=== PATIENT | female | born 1970 | race Caucasian/White ===

== ENCOUNTER 2017-04-25 05:23 | Inpatient (IN) | payer OTHER ==
[2017-04-25] MEDS ORDERED: Scopolamine 1.5 MG Transdermal Patch TRDERM SCH (05:30)
[2017-04-25] MEDS ORDERED: Acetaminophen 500 MG Tab PO ONE (05:30)
[2017-04-25] MEDS ORDERED: Gabapentin 300 MG Cap PO ONE (05:30)
[2017-04-25] MEDS ORDERED: Lactated Ringers 1,000 ML IV SCH (06:00)
[2017-04-25] MEDS ORDERED: Povidone-Iodine 10% Soln 118.25 ML Bottle ONE (06:50)
[2017-04-25] MEDS ORDERED: Bupivacaine 0.5%/EPINEPHrine 1:200,000 50 ML MDV ONE (06:50)
[2017-04-25] MEDS ORDERED: Thrombin (Bovine) 5,000 Unit Kit ONE (06:50)
[2017-04-25] MEDS ORDERED: Ondansetron 4 MG/2 ML SDV ONE (07:15)
[2017-04-25] MEDS ORDERED: fentaNYL 250 MCG/5 ML SDV ONE ×2 (07:15→07:56)
[2017-04-25] MEDS ORDERED: Rocuronium 50 MG/5 ML Vial ONE (07:15)
[2017-04-25] MEDS ORDERED: Dexamethasone 4 MG/ML SDV ONE (07:15)
[2017-04-25] MEDS ORDERED: Neostigmine Methylsulfate 1 MG/ML 5 ML Syringe ONE (07:15)
[2017-04-25] MEDS ORDERED: Propofol 200 MG/20 ML SDV ONE ×3 (07:15→09:10)
[2017-04-25] MEDS ORDERED: Glycopyrrolate 0.2 MG/ML 5 ML MDV ONE (07:15)
[2017-04-25] MEDS ORDERED: Succinylcholine 200 MG/10 ML MDV ONE (07:15)
[2017-04-25] MEDS: Tranexamic Acid 770 MG in Sodium Chloride 0.9% 50 ML IV SCH ×2 (07:16→10:03)
[2017-04-25] MEDS ORDERED: Lidocaine 1% 2 ML ONE (07:29)
[2017-04-25] MEDS ORDERED: ceFAZolin 2 GM in Premix Bag 1 BAG IV ONE (07:30)
[2017-04-25] MEDS ORDERED: Ketamine 500 MG/5 ML MDV IV ONE (07:35)
[2017-04-25] MEDS ORDERED: Aluminum Hydroxide/Magnesium Hydroxide/Simethicone Susp 30 ML Cup PO PRN (09:55)
[2017-04-25] MEDS ORDERED: Acetaminophen 1,000 MG in Premix Bag 1 BAG IV ONE ×2 (09:55→12:00)
[2017-04-25] MEDS ORDERED: Ondansetron 4 MG/2 ML SDV IVPUSH PRN (09:55)
[2017-04-25] MEDS ORDERED: Naloxone 0.4 MG/ML SDV IVPUSH PRN (09:55)
[2017-04-25] MEDS ORDERED: HYDROmorphone 1 MG/ML Syringe IVPUSH PRN (09:55)
[2017-04-25] MEDS ORDERED: Zolpidem 5 MG Tab PO PRN (09:55)
[2017-04-25] MEDS ORDERED: ceFAZolin 2 GM in Sodium Chloride 0.9% 50 ML IV SCH (10:00)
[2017-04-25] MEDS ORDERED: MECLIZINE 12.5 MG PO PRN (10:01)
[2017-04-25] MEDS ORDERED: LORazepam 0.5 MG Tab PO PRN (10:01)
[2017-04-25] MEDS ORDERED: Meclizine 25 MG Tab PO PRN (11:00)
[2017-04-25] MEDS: oxyCODONE 5 MG Tab PO PRN ×3 (11:12→22:01)
[2017-04-25] MEDS: ceFAZolin 2 GM in Premix Bag 1 BAG IV SCH ×2 (13:21→22:02)
--- NOTE | 2017-04-25 14:23 | OR ---
DATE OF PROCEDURE: 04/25/2017 PREOPERATIVE DIAGNOSIS: Cervical stenosis C5-6, C6-7. POSTOPERATIVE DIAGNOSIS: Cervical stenosis C5-6, C6-7. PROCEDURES: 1. Anterior cervical diskectomy and fusion, C5-6. 2. Anterior cervical diskectomy and fusion, C6-7. 3. Interbody device placement, C5-6. 4. Interbody device placement, C6-7. 5. Anterior segmental instrumentation, C5-6 and C6-7. 6. Autograft used from drilling vertebral body, used an interspace as well as Globus Signify allograft. 7. Partial corpectomy at C5. MEDICAL HEALTH RESEARCHER: ZELDA Julio. Physician political science research assistant, Radhika Joseph NP, played an essential role in assisting in this case, helping to position the patient, retract structures as needed, as well as suturing and cutting sutures as indicated. Her presence improved patient's safety and decreased operative time. ANESTHESIA: General endotracheal intubation. FLUID: Lactated Ringer solution. ESTIMATED BLOOD LOSS: 50 mL. COMPLICATIONS: None. SPECIMEN: None. DISCHARGE DISPOSITION: Stable to PACU. INSTRUMENTATION: [employer] ACP. The spacer at C5-6 is a 10 x 16, 7-degree 9-mm with a 10 mm x 4 mm plate. At C6-7, the spacer is a 10 x 16, 7-degree, 7-mm height with a 16 x 7 mm plate. All 4 screws are 3.6 mm x 16 mm diameter variable angle self-drilling screws. INDICATIONS FOR THE PROCEDURE: The patient was seen preoperatively in the clinic. She had failed nonoperative treatment, preoperative imaging, confirmed the above-mentioned diagnosis. Risks and benefits of the procedure were explained to the patient. Informed consent was obtained. DETAILS OF PROCEDURE: The patient was seen preoperatively in the preop holding area by myself and the anesthesia staff where the preoperative site was marked. She was brought to the operative suite by the anesthesia staff where general anesthesia was administered. She was on a flat Artis table. She had neuromonitoring leads placed, which were normal at baseline and normal throughout the case. We had tucked the arms, placed gel pads under the shoulders and then under the neck and put the neck in neutral position. All extremities were found to be well padded. I then took preoperative radiographs to confirm that we had good placement. I also placed tape on the shoulders and taken the tape down laterally down the arms down to the bottom of the bed. After confirming that we had adequate visualization, we then took out the fluoroscopy unit and then prepped and draped the patient in a sterile manner. A time-out was called identifying the correct patient, correct procedure, correct site, and antibiotics had begun within appropriate period of time. We then used a sterilely draped fluoroscopy unit and found the C6-7 interspace. I then made an oblique incision medial to the right-sided sternocleidomastoid and carried down through the platysma with Bovie electrocautery and bipolar electrocautery down to the level of sternocleidomastoid. Then used a Weitlaner for retraction. I then went through the medial border of the sternocleidomastoid through its fascia and then using blunt dissection went down to the prevertebral space. I then confirmed that we were at the C6-7 interspace and then used a 35 mm radiolucent shadow line blades for retraction. I then used a knife to go through the anterior annulus and then used a rongeur and drill to remove some anterior osteophytes, which were saved for placement in the interbody device. I then performed a diskectomy using curettes, Kerrison and pituitaries down the level of the posterior longitudinal ligament and then went through the posterior longitudinal ligament on the right and the left side in a manner so that I could take the curette out the foramen bilaterally and then placed a nerve hook. I did have some epidural bleeding back there and then I placed thrombin-soaked Gelfoam and cottonoids which controlled the bleeding. We then sequentially placed trials from 5 up to a 7-mm height, 7 mm provided adequate distraction. We then inserted our final spacer and then awl'd and then placed screws under fluoroscopic visualization, making sure they were not too long. After this had been accomplished, we went up to the C5-C6 interspace. This was much more difficult as the disk space had degenerated significantly. At this interspace, I did have to perform a partial corpectomy of C5 because the interspace was so deteriorated and with difficulty with traction, I was able to then put in my intervertebral spreaders and then get to the back. I did use fluoroscopy to determine how far back I was at one point in the case. I was then able to identify the posterior longitudinal ligament and then placed a curette out bilateral foramina and followed by a nerve hook. I did use 2 Kerrison to remove some osteophytes from the inferior aspect of the vertebral body at C5 and superior aspect of the vertebral body at C6. I then trialed from an 8 to a 9. The 9 mm seemed to be of right adequate distraction without over distraction and I confirmed this on fluoroscopy. I then inserted the final implant and then awl'd and placed my screws and confirmed good position. We then took our final AP and lateral films. After this had been done, we then copiously irrigated with 2 L of Betadine infused irrigation and then placed FloSeal at the base of the wound and then let that sit and then tamped any excess out with a Ray-Poonam. I then placed a drain out the lateral aspect of the wound and then closed the platysma. I had Radhika Joseph close the platysma with 2-0 Vicryl sutures followed by 3-0 Monocryl, followed by Steri-Strips and a sterile dressing. The patient was then allowed to awaken from general anesthesia and taken to the PACU in stable condition. Kanu Sharp DO /[id number]
[2017-04-25] MEDS ORDERED: Sennosides 8.6 MG Tab PO SCH (21:00)
[2017-04-25] MEDS ORDERED: Magnesium Hydroxide 400 MG/5 ML Susp 30 ML Cup PO SCH (21:00)
[2017-04-25] MEDS: Sennosides 8.6 MG Tab PO SCH (21:58)
[2017-04-25] MEDS: Magnesium Hydroxide 400 MG/5 ML Susp 30 ML Cup PO SCH (21:59)
[2017-04-26] MEDS ORDERED: Benzocaine/Cetylpyridinium/Menthol Lozenge MUCMEM PRN (00:03)
[2017-04-26] MEDS: ceFAZolin 2 GM in Premix Bag 1 BAG IV SCH (05:11)
[2017-04-26] MEDS: oxyCODONE 5 MG Tab PO PRN (07:12)
[2017-04-26] MEDS ORDERED: MAGNESIUM MALATE MC SCH ×2 (09:00)
[2017-04-26] MEDS ORDERED: OMEGA PO SCH (09:00)
[2017-04-26] MEDS ORDERED: Cholecalciferol (Vitamin D3) 1,000 Unit Tab PO SCH (09:00)
[2017-04-26] MEDS ORDERED: Non-Formulary Medication 1 Each (Cholecalciferol (Vitamin D3) [Vitamin D] 5,000 UNIT) PO SCH (09:00)
[2017-04-26] MEDS ORDERED: TUMERIC PO SCH (09:00)
[2017-04-26] MEDS ORDERED: Calcium Carbonate/Vitamin D3 1500 MG-400 Units Tab PO SCH (09:00)
[2017-04-26] MEDS ORDERED: Vitamin B Complex Tab PO SCH (09:00)
[2017-04-26] MEDS ORDERED: VITAMIN PO SCH (09:00)
[2017-04-26] MEDS ORDERED: Fish Oil/Omega-3 Fatty Acids 1 Gm Cap PO SCH (09:00)
[2017-04-26] MEDS ORDERED: FATTY ACIDS PO SCH (09:00)
[2017-04-26] MEDS ORDERED: CALCIUM CARBONATE PO SCH (09:00)
[2017-04-26] MEDS ORDERED: [UNRECOGNIZED DRUG - OTHER] PO SCH (09:00)
[2017-04-26] MEDS ORDERED: VITAMIN D3 PO SCH (09:00)
[2017-04-26] MEDS: Sennosides 8.6 MG Tab PO SCH (09:25)
[2017-04-26] MEDS: Magnesium Hydroxide 400 MG/5 ML Susp 30 ML Cup PO SCH (09:26)
[2017-04-26] MEDS ORDERED: Acetaminophen/oxyCODONE 325-5 MG Tab PO PRN (09:56)
--- NOTE | 2017-05-01 15:31 | PCM.DCSUM1 ---
Discharge Summary - Hospital Course Free Text/Narrative:: Patient is status postop day 1 of a cervical fusion C5-6 and C6-7. She is doing very well. Patient states she has minimal pain at this time. Patient is sitting up in the chair eating breakfast. - Discharge Data Discharge Date: 04/27/17 Discharge Disposition: Home, Self-Care 01 Condition: Good - Patient Summary/Data Consults: Consultations 04/25/17 09:56 OT Evaluation and Treatment [CONS] Routine Please Evaluate and Treat. OT Reason for Consult: Strengthening This query below is only for informational purposes and is not editable. PT Evaluation and Treatment [CONS] Routine Please Evaluate and Treat. PT Reason for Consult: Strengthening This query below is only for informational purposes and is not editable. Respiratory Care Assess and Treatment [CONS] Routine Comment: Physician Instructions: Post-Op Pneumonia Prevention - Patient Instructions Diet: Usual Diet as Tolerated Activity: Apply Ice, As Tolerated Driving: Do Not Drive Showering/Bathing: May Shower, No Tub Bathing/Swimming Wound/Incision Care: Keep Operative Site/Wound Site Clean and Dry, Change Dressing Daily Notify Provider of: Fever, Increased Pain, Swelling and Redness, Drainage, Nausea and/or Vomiting - Discharge Plan Prescriptions/Med Rec: Acetaminophen/oxyCODONE [Percocet 325-5 MG] 1 tab PO Q6HR PRN #90 tablet PRN Reason: Pain Home Medications: Home Meds Calcium Carbonate/Vitamin D3 [Liquid Calcium with Vitamin D] 1 tab PO DAILY [History] Cholecalciferol (Vitamin D3) [Vitamin D] 5,000 unit PO DAILY 04/05/17 [History] LORazepam 0.5 mg PO BID PRN 04/05/17 [History] Meclizine [Antivert] 12.5 mg PO TID PRN 04/05/17 [History] [place]-3 Fatty Acids [[place]-3] 1 gm PO DAILY 04/05/17 [History] Vitamin B Complex [B Complex] 1 tab PO DAILY 04/05/17 [History] Magnesium Malate 1 gm MC DAILY 04/25/17 [History] Tumeric 1 tab PO DAILY 04/25/17 [History] Acetaminophen/oxyCODONE [Percocet 325-5 MG] 1 tab PO Q6HR PRN #90 tablet [Rx] Patient Handouts: Anterior Cervical Diskectomy and Fusion - Discharge Summary/Plan Comment DC Time >30 min.: Yes Discharge Summary/Plan Comment: At this time we will pull the KAYA drain. Patient will the discharged today and will follow-up with us in 1 month time. She is to let us know she has any other issues in the meantime we will send the patient home on Percocet. - Patient Data Vitals - Most Recent: Last Vital Signs Temp 36.9 C 04/26/17 07:08 Pulse 78 04/26/17 07:08 Resp 16 04/26/17 07:08 BP 105/72 04/26/17 07:08 Pulse Ox 99 04/26/17 07:19 Weight - Most Recent: 172 lb Med Orders - Current: Current Medications Discontinued Medications Acetaminophen (Tylenol Extra Strength) 1,000 mg PO ONETIME ONE Stop: 04/25/17 05:31 Last Admin: 04/25/17 05:51 Dose: 1,000 mg Al Hydroxide/Mg Hydroxide (Mag-Al Plus) 30 ml PO Q4H PRN PRN Reason: Indigestion Benzocaine/Menthol (Cepacol Sore Throat) 1 lozenge MUCMEM 6XDAY PRN PRN Reason: Sore Throat Bupivacaine HCl/Epinephrine Bitart (Marcaine 0.5%/Epinephrine 1:200,000) Confirm Administered Dose 50 ml .ROUTE .STK-MED ONE Stop: 04/25/17 06:51 Last Admin: 04/25/17 08:20 Dose: 25 ml Calcium Carbonate (Caltrate 600+D 1500 Mg-400 Units) 1 tab PO DAILY [facility] Last Admin: 04/26/17 09:25 Dose: 1 tab Cholecalciferol (Vitamin D3) 5,000 units PO DAILY [facility] Last Admin: 04/26/17 09:25 Dose: 5,000 units Dexamethasone (Dexamethasone) Confirm Administered Dose 4 mg .ROUTE .STK-MED ONE Stop: 04/25/17 07:16 Fentanyl (Sublimaze) Confirm Administered Dose 250 mcg .ROUTE .STK-MED ONE Stop: 04/25/17 07:16 Fentanyl (Sublimaze) Confirm Administered Dose 250 mcg .ROUTE .STK-MED ONE Stop: 04/25/17 07:57 Fish Oil (Fish Oil) 1 gm PO DAILY [facility] Last Admin: 04/26/17 09:25 Dose: 1 gm Gabapentin (Neurontin) 300 mg PO ONETIME ONE Stop: 04/25/17 05:31 Last Admin: 04/25/17 05:51 Dose: 300 mg Glycopyrrolate (Robinul) Confirm Administered Dose 1 mg .ROUTE .STK-MED ONE Stop: 04/25/17 07:16 Hydromorphone HCl (Dilaudid) 1 mg IVPUSH Q2H PRN PRN Reason: Pain Stop: 04/26/17 09:56 Cefazolin Sodium/Dextrose 2 gm (/ Premix) 50 mls @ 100 mls/hr IV ONETIME ONE Stop: 04/25/17 07:59 Last Admin: 04/25/17 07:16 Dose: 100 mls/hr Lactated Ringer's (Ringers, Lactated) 1,000 mls @ 0 mls/hr IV ASDIRECTED CAMRYN PRN Reason: KVO Last Admin: 04/25/17 06:22 Dose: 25 mls/hr Tranexamic Acid 770 mg/ Sodium (Chloride) 57.7 mls @ 230.8 mls/hr IV Q2H [facility] Stop: 04/25/17 09:49 Last Admin: 04/25/17 10:03 Dose: 230.8 mls/hr Ketamine HCl 100 mg/ Sodium (Chloride) 100 mls @ 18.48 mls/hr IV ASDIRECTED CAMRYN PRN Reason: 5 MCG/KG/MIN Stop: 04/25/17 09:35 Lidocaine HCl (Xylocaine-Mpf 1%) Confirm Administered Dose 2 mls @ as directed .ROUTE .STK-MED ONE Stop: 04/25/17 07:30 Acetaminophen 1,000 mg/ Premix 100 mls @ 400 mls/hr IV NOW ONE Stop: 04/25/17 10:09 Last Admin: 04/25/17 11:25 Dose: Not Given Cefazolin Sodium 2 gm/ Sodium (Chloride) 50 mls @ 100 mls/hr IV Q8H [facility] Stop: 04/26/17 02:29 Last Admin: 04/25/17 11:26 Dose: Not Given Cefazolin Sodium/Dextrose 2 gm (/ Premix) 50 mls @ 100 mls/hr IV Q8H [facility] Stop: 04/26/17 06:29 Last Admin: 04/26/17 05:11 Dose: 100 mls/hr Acetaminophen 1,000 mg/ Premix 100 mls @ 400 mls/hr IV NOW ONE Stop: 04/25/17 12:14 Last Admin: 04/25/17 11:55 Dose: 400 mls/hr Ketamine HCl (Ketalar) 31 mg IV ONETIME ONE Stop: 04/25/17 07:36 Last Admin: 04/25/17 11:26 Dose: Not Given Lorazepam (Ativan) 0.5 mg PO BID PRN PRN Reason: Anxiety Magnesium Hydroxide (Milk Of Magnesia) 30 ml PO BID CAMRYN Magnesium Hydroxide (Milk Of Magnesia) 30 ml PO BID CAMRYN Last Admin: 04/26/17 09:26 Dose: 30 ml Meclizine HCl (Antivert) 12.5 mg PO TID PRN PRN Reason: Dizziness Naloxone HCl (Narcan) 0.2 mg IVPUSH ASDIRECTED PRN PRN Reason: Oversedation Neostigmine Methylsulfate (Neostigmine) Confirm Administered Dose 5 mg .ROUTE .STK-MED ONE Stop: 04/25/17 07:16 Non-Formulary Medication (Calcium Carbonate/Vitamin D3 [Liquid Calcium With Vitamin D]) 1 tab PO DAILY [facility] Non-Formulary Medication (Cholecalciferol (Vitamin D3) [Vitamin D]) 5,000 unit PO DAILY [facility] Non-Formulary Medication (Magnesium Malate [Magnesium Malate]) 1 gm MC DAILY [facility] Non-Formulary Medication ([place]-3 Fatty Acids [[place]-3]) 1 gm PO DAILY [facility] Non-Formulary Medication (Tumeric) 1 tab PO DAILY [facility] (Magnesium Malate [ Magnesium Malate] 1 Gm)*Pom* 1 gm MC DAILY [facility] Last Admin: 04/26/17 09:26 Dose: Not Given (Turmeric 1 Tab)*Pom (*) 1 tab PO DAILY CAMRYN Last Admin: 04/26/17 09:27 Dose: Not Given Ondansetron HCl (Zofran) Confirm Administered Dose 4 mg .ROUTE .STK-MED ONE Stop: 04/25/17 07:16 Ondansetron HCl (Zofran) 8 mg IVPUSH Q4H PRN PRN Reason: Nausea/Vomiting Oxycodone HCl (Oxycodone) 10 mg PO Q4H PRN PRN Reason: Pain Stop: 04/26/17 09:56 Last Admin: 04/26/17 07:12 Dose: 10 mg Oxycodone/Acetaminophen (Percocet 325-5 Mg) 2 tab PO Q4H PRN PRN Reason: Pain Povidone Iodine (Betadine 10% Soln) Confirm Administered Dose 1 ml .ROUTE .STK- MED ONE Stop: 04/25/17 06:51 Last Admin: 04/25/17 08:21 Dose: 40 ml Propofol (Diprivan 20 Ml) Confirm Administered Dose 200 mg .ROUTE .STK-MED ONE Stop: 04/25/17 07:16 Propofol (Diprivan 20 Ml) Confirm Administered Dose 400 mg .ROUTE .STK-MED ONE Stop: 04/25/17 07:20 Propofol (Diprivan 20 Ml) Confirm Administered Dose 200 mg .ROUTE .STK-MED ONE Stop: 04/25/17 09:11 Rocuronium [place] (Zemuron) Confirm Administered Dose 50 mg .ROUTE .STK-MED ONE Stop: 04/25/17 07:16 Scopolamine (Transderm-Scop) 1.5 mg TRDERM Q72H [facility] Stop: 04/27/17 05:31 Last Admin: 04/25/17 05:51 Dose: 1.5 mg Senna (Senna) 8.6 mg PO BID [facility] Senna (Senna) 8.6 mg PO BID [facility] Last Admin: 04/26/17 09:25 Dose: 8.6 mg Succinylcholine Chloride (Quelicin) Confirm Administered Dose 200 mg .ROUTE .STK -MED ONE Stop: 04/25/17 07:16 Thrombin (Thrombin-Jmi) Confirm Administered Dose 15,000 unit .ROUTE .STK-MED ONE Stop: 04/25/17 06:51 Last Admin: 04/25/17 08:21 Dose: 10,000 unit Vitamin B Complex (Vitamin B Complex) 1 each PO DAILY [facility] Last Admin: 04/26/17 09:25 Dose: 1 each Zolpidem Tartrate (Ambien) 5 mg PO BEDTIME PRN PRN Reason: Sleep - Exam General: Reports: Alert, Oriented Extremities: Normal Inspection Skin: Reports: Warm, Dry, Intact Wound/Incisions: Reports: Healing Well, Dressing Dry and Intact Neurological: Reports: No New Focal Deficit *Q Meaningful Use (DIS) - VTE *Q VTE Criteria *Q: - Stroke *Q Stroke Criteria *Q: - AMI *Q AMI Criteria *Q:
== END 2017-04-26 11:21 | disposition home or self-care (01) | DRG 473 ==
LOC: JP.MS 05:23 → JP.SDS 05:23 → EDSTATUS 07:30 → JP.MS 09:55
PROVIDERS: ADMIT Orthopaedic Surgery; ATTEND Orthopaedic Surgery
PROC: 0RG20A0 Fusion of 2 or more Cervical Vertebral Joints with Interbody Fusion Device, Anterior Approach, Anterior Column, Open Approach (ICD-10-PCS; principal; 2017-04-25)
PROC: 0RB30ZZ Excision of Cervical Vertebral Disc, Open Approach (ICD-10-PCS; 2017-04-25)
PROC: 4A11X4G Monitoring of Peripheral Nervous Electrical Activity, Intraoperative, External Approach (ICD-10-PCS; 2017-04-25)
DX: M48.02 Spinal stenosis, cervical region (principal); M54.12 Radiculopathy, cervical region; Z91.040 Latex allergy status; M25.78 Osteophyte, vertebrae; M47.9 Spondylosis, unspecified
CPT/HCPCS: 36415; 76001; 80048; 81025; 85025; 94762; 97116-GP; 97162-GP; 97530-GP; 97535-GP; A9270-GY; C1713; J0131; J0330; J0690; J1100; J2001; J2405; J2704; J2710; J3010; J7050; J7120

== ENCOUNTER 2017-04-28 15:52 | Emergency (ER) | payer OTHER ==
--- NOTE | 2017-04-28 16:37 | EDM.PDOC ---
ED HPI GENERAL MEDICAL PROBLEM - General Chief Complaint: Neurological Problem Stated Complaint: SURGERY NUMB RI SI Time Seen by Provider: 04/28/17 16:36 Source of Information: Reports: Patient, Family History Limitations: Reports: No Limitations - History of Present Illness INITIAL COMMENTS - FREE TEXT/NARRATIVE: 46-year-old female who underwent orthopedic surgery to the C-spine for spinal stenosis, completed on Monday and discharged on Monday. She was doing well but this morning she woke up with right-sided facial paresthesias and numbness, as the day has gone on the symptoms have distended down into her arm and now her right leg. It is all right sided, she feels some mild weakness in her arm but no difficulty with speech or vision. She has never had anything like this in the past. She did have some difficulty walking into the emergency room but she thought it was more because of the numbness not weakness. No fevers or chills, no headache. She is not anticoagulated. Onset: Unknown/Unsure (Woke up with symptoms this morning) Location: Reports: Face, Upper Extremity, Right, Lower Extremity, Right Quality: Reports: Other (Numbness, tingling) Severity: Moderate Associated Symptoms: Reports: No Other Symptoms Right Ear Pain Score (Numeric/FACES): 5 - Related Data Allergies Allergy/AdvReac Type Severity Reaction Status Date / Time latex Allergy Rash Verified 04/28/17 16:22 codeine AdvReac Nausea and Verified 04/28/17 16:22 Vomiting Home Meds: Home Meds Calcium Carbonate/Vitamin D3 [Liquid Calcium with Vitamin D] 1 tab PO DAILY [History] Cholecalciferol (Vitamin D3) [Vitamin D] 5,000 unit PO DAILY 04/05/17 [History] LORazepam 0.5 mg PO BID PRN 04/05/17 [History] Meclizine [Antivert] 12.5 mg PO TID PRN 04/05/17 [History] [place]-3 Fatty Acids [[place]-3] 1 gm PO DAILY 04/05/17 [History] Vitamin B Complex [B Complex] 1 tab PO DAILY 04/05/17 [History] Magnesium Malate 1 gm MC DAILY 04/25/17 [History] Tumeric 1 tab PO DAILY 04/25/17 [History] Acetaminophen/oxyCODONE [Percocet 325-5 MG] 1 tab PO Q6HR PRN #90 tablet [Rx] Past Medical History Respiratory History: Reports: COPD SILK SNAPPER History: Reports: Musculoskeletal History: Reports: Other (See Below) Other Musculoskeletal History: neck pain - Infectious Disease History Infectious Disease History: Reports: Chicken Pox - Past Surgical History Female Surgical History: Reports: Hysterectomy, Other (See Below) Other Female Surgeries/Procedures: bladder repair Neurological Surgical History: Reports: C-Spine Musculoskeletal Surgical History: Reports: Other (See Below) Other Musculoskeletal Surgeries/Procedures:: ankle x 2 Social & Family History - Family History Family Medical History: Noncontributory - Tobacco Use Smoking Status *Q: Never Smoker - Caffeine Use Caffeine Use: Reports: Coffee - Recreational Drug Use Recreational Drug Use: No ED ROS GENERAL - Review of Systems Review Of Systems: See Below Constitutional: Denies: Fever, Chills HEENT: Reports: Eye Pain (Right eye feels "gravelly"), Throat Pain (Pain with swallowing due to her recent surgery) Respiratory: Denies: Shortness of Breath, Cough Cardiovascular: Denies: Chest Pain GI/Abdominal: Denies: Abdominal Pain, Nausea, Vomiting : Reports: No Symptoms Skin: Reports: Other ( says her face looks flushed) Neurological: Reports: Other (See history of present illness) Psychiatric: Reports: No Symptoms ED EXAM, NEURO - Physical Exam Exam: See Below Exam Limited By: No Limitations General Appearance: Alert, No Apparent Distress Eye Exam: Bilateral Eye: EOMI, PERRL, Other (Visual ayala intact) Throat/Mouth: Normal Inspection Head Exam: Atraumatic, Other (She has definite facial tactile numbness or deficit on the right side compared to the left) Neck: Other (There is a bandage over her cervical incision, no erythema or swelling is seen) Respiratory/Chest: No Respiratory Distress, Lungs Clear Cardiovascular: Regular Rate, Rhythm GI/Abdominal: Soft, Non-Tender Neurological: Alert, Other (Patient has tactile deficits of the right face, right arm and right leg with minimal grasp weakness of the right hand) Psychiatric: Normal Affect, Normal Mood Skin Exam: Warm, Dry Course - Vital Signs Last Recorded V/S: Last Vital Signs Temp 97.4 F 04/28/17 16:19 Pulse 98 04/28/17 18:52 Resp 18 04/28/17 18:52 BP 120/83 04/28/17 18:52 Pulse Ox 96 04/28/17 18:52 - Orders/Labs/Meds Orders: Active Orders 24 hr Category Date Time Status Head wo Cont [CT] Stat Exams 04/28/17 16:47 Taken Meds: Medications Discontinued Medications Generic Name Dose Route Start Last Admin Trade Name Pamela PRN Reason Stop Dose Admin Lorazepam 1 mg 04/28/17 18:39 04/28/17 18:51 Ativan PO 04/28/17 18:40 1 mg ONETIME ONE Administration - Re-Assessments/Exams Free Text/Narrative Re-Assessment/Exam: 04/28/17 17:26 After discussing her condition with surgery, a CT of the head without contrast was obtained. This showed no hemorrhage. 04/28/17 18:[address] scan was negative. After discussion with neurology in [place], it was recommended the patient go to [place] for a brain MRI. She was given 1 mg of oral lorazepam prior to discharge because of her anxiety of the MRI. She is going to go directly to the emergency room at [facility] in [place] to obtain the MRI, possibly admission or discharge depending on results. Departure - Departure Time of Disposition: 19:00 Disposition: DC/Tfer to Other 70 Condition: Fair Clinical Impression: Focal neurological deficit present, Paresthesia of right upper and lower extremity - Discharge Information Instructions: Paresthesia Referrals: Kanu Sharp DO [Primary Care Provider] - Forms: ED Department Discharge Care Plan Goals: Go to [facility], directly to the emergency room where they will be waiting. You will be receiving an MRI of your head tonight. - My Orders Last 24 Hours: My Active Orders 04/28/17 16:47 Head wo Cont [CT] Stat - Assessment/Plan Last 24 Hours: My Active Orders 04/28/17 16:47 Head wo Cont [CT] Stat
[2017-04-28] MEDS ORDERED: LORazepam 1 MG Tab PO ONE (18:39)
== END 2017-04-28 19:02 | disposition other institution (70) ==
LOC: JP.ED 15:52
DX: R20.2 Paresthesia of skin (principal); R29.818 Other symptoms and signs involving the nervous system; Z91.040 Latex allergy status; Z88.5 Allergy status to narcotic agent; Z79.899 Other long term (current) drug therapy
CPT/HCPCS: 70450; 99285; A9270